=== PATIENT | female | born 1985 | race Caucasian/White ===

== ENCOUNTER 2023-06-09 21:20 | Emergency (ER) | payer SELFPAY ==
[2023-06-09 21:20] VITALS: BP 152/82; PULSE 100; RESP 18; TEMP 36.8; O2SAT 99; BMI 32.6
--- NOTE | 2023-06-09 21:38 | EX.ED.UPPERE ---
HPI History of Present Illness Chief Complaint: Laceration Detail of Chief Complaint: Laceration dorsal surface of left hand Informant: patient Occured/Mechanism Mechanism/Context: Yes injury Comment: Accidental laceration with knife dorsum of left hand Onset/Context/Timing Onset: Hours Context: Sudden Onset Timing: - (Patient is presently having no pain) Location: Dorsum left hand Current Severity: Gone Maximum Severity: Moderate Worsened by: Initial injury Relieved by: Not applicable Associated Symptoms Associated Symptoms: Negative for Parasthesia, Weakness or Loss of Funtion Narrative Narrative: Patient is a 38-year-old [id number] woman who presents with laceration dorsum of the left hand. Tetanus is greater than 10 years. She denies paresthesia, anesthesia or motor she is not on an anticoagulant. Tetanus Immunization: Unknown Prior similar symptoms: No Recent Illness/Hospitalization: No PFSH PFSH Home Medications No Known/Unobtainable [No Known Home Medications] 04/28/16 [History Last Taken Unknown] Allergy/AdvReac Type Severity Reaction Status Date / Time No Known Allergies Allergy Verified 06/09/23 21:23 Social History Smoking Status: Current every day smoker tobacco type: cigarettes ROS ROS ED Integumentary Reports other Details: Laceration due to knife dorsum of left hand Neurologic Neurologic: Denies paresthesias or weakness Hematologic/Lymphatic Hematologic/Lymphatic: Denies easy bleeding or easy bruising EXAM Physical Exam Const Vital Signs: 06/09/23 21:20 Temperature 98.3 F Temperature Source Temporal Pulse Rate 100 Respiratory Rate 18 Blood Pressure 152/82 H Blood Pressure Mean 105 Pulse Ox 99 Oxygen Delivery Method Room Air Positive well nourished, well developed and obese General Appearance ED: well developed and NAD Nutritional Appearance: obese HEENT Reports moist mucous membranes normocephalic and atraumatic Eyes PERRL and EOMs intact bilaterally Resp normal respiratory effort Cardio regular rate and regular rhythm Extremity Negative for normal to inspection Extremity Narrative: There is a laceration dorsal left hand that is 1 cm in length and gaping. Median, radial and ulnar function intact. Extensor pollicis longus and extensor pollicis brevis tendon are intact. The extensor inside tendon is intact. Sensation is normal. Capillary refill is normal. Neuro oriented x3, CN's II-XII intact bilaterally, no focal motor deficits and no sensory deficits noted Sensorium / Orientation: alert Psych mental status grossly normal Skin Skin Narrative: Laceration revisit MDM MDM MDM Narrative Medical decision making narrative: Tetanus was updated. Will anesthetize wound and clean and suture. Please see procedure Procedures Other Procedures Procedure(s): The left hand/wrist was prepped. The wound was cleansed with surgical and. Wound was irrigated. The wound was anesthetized with 1% lidocaine by local infiltration, 1 cc. 5-0 Ethilon was used for closure. 3 simple interrupted sutures was placed. Patient tolerated procedure well. Discharge Plan Triage Chief Complaint: Laceration ED Provider: Jenaro Ceja Dx/Rx/DC Orders Clinical Impression: Laceration of hand, left Instructions: ED Laceration, Hand: All Closures Prescriptions: No Action No Known Home Medications Primary Care Provider: Care Physician,No Primary Referrals: Magalys Samano [Non-Staff] - 10 Day for suture removal Care Physician,No Primary [Primary Care Provider] - Activity Restrictions/Additional Instructions: Keep your wound clean and dry for the next 48 hours Clean wound with peroxide on a Q-tip 3 times a day then apply bacitracin ointment Disposition Disposition: Home, Self Care
[2023-06-09] MEDS: Lidocaine 1% (20 ml mdv) 20 ML Vial INFILT (21:50)
[2023-06-09] MEDS: Diphth,Pertuss(Acell),Tet Vac 0.5 ML Vial IM (21:51)
== END 2023-06-09 22:06 | disposition home or self-care (01) ==
LOC: ED 22:03
PROVIDERS: Emergency Provider Emergency Medicine; Visit Provider Emergency Medicine
DX: S61.412A Laceration without foreign body of left hand, initial encounter (principal); W26.0XXA Contact with knife, initial encounter; Z23 Encounter for immunization; E66.9 Obesity, unspecified; F17.210 Nicotine dependence, cigarettes, uncomplicated
CPT/HCPCS: 12001; 90471; 90715; 99283